=== PATIENT | female | born 1950 | race Caucasian/White ===

== ENCOUNTER 2017-03-09 08:36 | Emergency (ER) | payer BC ==
[~2017-03-09] VITALS: Ht 160 cm; Wt 72.6 kg
--- NOTE | 2017-03-09 08:44 | NUR ---
Arrived via [facility], s/p trip over chair, sustained LLE avulsion. No distress noted. Alert and oriented x4. Continue to monitor. MD at bedside.
[2017-03-09] MEDS ORDERED: CELE200C PO (09:00)
[2017-03-09] MEDS ORDERED: TRAM50TA2 PO (09:00)
[2017-03-09] MEDS ORDERED: TDAP DIPH,PERTUSS,TET VAC/PF 0.5 ML DISP.SYRIN IM ONE ×2 (09:02→09:45)
[2017-03-09] MEDS ORDERED: ESTR0.3T3 PO (09:04)
[2017-03-09] MEDS ORDERED: ATOR10TA PO (09:04)
[2017-03-09] MEDS ORDERED: TOLT2CAP PO (09:04)
[2017-03-09] MEDS ORDERED: HYDR25TA4 PO (09:04)
[2017-03-09] MEDS ORDERED: DOCU-170 PO (09:04)
[2017-03-09] MEDS ORDERED: ASPI81TA31 PO (09:04)
[2017-03-09] MEDS ORDERED: OMEP40CA37 PO (09:04)
[2017-03-09] MEDS ORDERED: VALS40TA4 PO (09:04)
[2017-03-09] MEDS ORDERED: LIDOCAINE HCL 1% 20 ML VIAL TP ONE (09:45)
--- NOTE | 2017-03-09 09:58 | NUR ---
Per BETH RAGSDALE open area is laceration. Sutured by ER , Dr Cam. Dry dressing and wrap gauze applied. CMS WNL.
--- NOTE | 2017-03-09 10:01 | NUR ---
Patient discharged to home in stable conditon. Written and verbal after care instructions given. Patient verbalizes understanding of instructions. Ambulated from ER with stable gait. Accompanied by . All belongings with patient. Patient will be driven home by in private vehicle. No complaint of pain upon discharge .
[2017-03-09 10:03] VITALS: BP 131/78
== END 2017-03-09 10:04 | disposition home or self-care (01) ==
LOC: ER 08:36
DX: S81.812A Laceration without foreign body, left lower leg, initial encounter (principal); I10 Essential (primary) hypertension; K21.9 Gastro-esophageal reflux disease without esophagitis; E78.5 Hyperlipidemia, unspecified; Z79.82 Long term (current) use of aspirin; Z96.651 Presence of right artificial knee joint; W22.8XXA Striking against or struck by other objects, initial encounter; Y93.89 Activity, other specified; Y99.8 Other external cause status; Y92.89 Other specified places as the place of occurrence of the external cause
CPT/HCPCS: 12005; 90471; 90715; 99283; A4663; J3490 ×2

== ENCOUNTER 2019-04-03 11:05 | Emergency (ER) | payer BC, MEDICARE ==
[~2019-04-03] VITALS: Ht 160 cm; Wt 79.4 kg
[~2019-04-03 11:05] MED LIST: ASPI81TA31 PO; ATOR10TA PO; CELE200C PO; DOCU100C36 PO; ESTR0.3T3 PO; HYDR25TA4 PO; OMEP40CA37 PO; TOLT2CAP PO; TRAM50TA2 PO; VALS40TA4 PO
[2019-04-03] MEDS ORDERED: HYDROCODONE/APAP 5-325MG TABLET PO ONE (11:30)
--- NOTE | 2019-04-03 11:30 | NUR ---
1110 pt c/o pain to BLE, NKA, curlex with bright blood seeping through to left left, right dressing D/I. at bedside. Addendum: 04/03/19 at 1135 by MARLYS 1130 pt c/o pain 5/10 orders given, pt medicated, states aching to both legs., pt dressing removed and cleaned. CLAUDINE at bedside assisting . Addendum: 04/03/19 at 1241 by MARLYS 1130 pt dressing completed by Nabil HERZOG and shanti strips applied, pt tolerated and medicated.
[2019-04-03] MEDS ORDERED: HYDROCODONE/APAP 5-325MG TABLET ONE (11:31)
--- NOTE | 2019-04-03 12:10 | NUR ---
Patient discharged to home in stable conditon. Written and verbal after care instructions given. Patient verbalizes understanding of instructions.
== END 2019-04-03 12:15 | disposition home or self-care (01) ==
LOC: ER 11:07
DX: S81.812A Laceration without foreign body, left lower leg, initial encounter (principal); S81.811A Laceration without foreign body, right lower leg, initial encounter; I10 Essential (primary) hypertension; E78.5 Hyperlipidemia, unspecified; K21.9 Gastro-esophageal reflux disease without esophagitis; Z79.82 Long term (current) use of aspirin; Z79.899 Other long term (current) drug therapy; V49.9XXA Car occupant (driver) (passenger) injured in unspecified traffic accident, initial encounter; Y93.89 Activity, other specified; Y92.410 Unspecified street and highway as the place of occurrence of the external cause; Y99.8 Other external cause status
CPT/HCPCS: A4217; A4663